=== PATIENT | male | born 2000 | race Two or more races ===

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

== ENCOUNTER 2022-04-21 23:09 | Emergency (ER) | payer OTHER ==
[2022-04-21 23:23] VITALS: BP 112/69; PULSE 83; RESP 19; TEMP 97.9; BMI 27.1
== END 2022-04-22 01:55 | disposition home or self-care (01) ==
LOC: JER 23:09
DX: S90.851A Superficial foreign body, right foot, initial encounter (principal); W25.XXXA Contact with sharp glass, initial encounter
CPT/HCPCS: 73630-TC-RT-FY; 99283-25